=== PATIENT | male | born 1930 | race Caucasian/White ===

== ENCOUNTER 2017-09-04 04:23 | Emergency (ER) | payer MEDICARE, OTHER ==
[2017-09-04 04:54] LABS: Bilirubin Negative (Negative); Blood, Urine Small (Negative); Clarity Clear (Clear); Glucose, Urine (Dipstick) Negative (Negative); Leukocyte Negative (Negative); Nitrite Negative (Negative); Protein, Urine (Dipstick) Negative (Neg-Trace); Specific Gravity, Urine 1.015 (1.005-1.030); Urobilinogen 0.2 mg/dL (0.2-1.0); pH, Urine 6.5 (5.0-9.0)
[2017-09-04 04:59] LABS: Bacteria/HPF None Seen HPF (None Seen); Hyaline Casts/LPF 0-3 HYALINE CAST LPF (0-3 Hyaline); RBC/HPF 0-3 HPF (0-3); Squamous Epithelial 0-3 HPF (0-3); WBC/HPF 0-3 HPF (0-3)
[2017-09-04 05:18] LABS: #Basophils 0.1 thou/uL (0.0-0.2); #Lymphocytes 1.1 thou/uL (1.20-3.40); #Monocytes 1.1 thou/uL (0.11-0.59); #Neutrophils 5.4 thou/uL (1.40-6.50); %Basophils 0.8 % (0.0-1.0); %Eosinophils 0.6 % (0.0-10.0); %Neutrophils 70.6 % (42.0-75.0); Hemoglobin 11.6 g/dL (14.0-18.0); Mean Corpuscular HGB CONC 33.7 g/dL (32.0-36.0); Mean Corpuscular Volume 89.2 fl (80.0-94.0); Mean Platelet Volume 7.2 fL (7.4-10.4); Platelet Count 263 thou/uL (130-400); RBC Distribution Width 13.5 % (11.5-14.5); Red Blood Cell (RBC) Count 3.86 mill/uL (4.70-6.10); White Blood Cell (WBC) Count 7.7 thou/uL (4.8-10.8)
[2017-09-04 05:32] LABS: ALT (SGPT) 10 U/L (8-55); AST (SGOT) 14 U/L (5-34); Albumin 3.3 g/dL (3.4-4.8); Alkaline Phosphatase 66 U/L (40-150); Anion Gap 15 mmol/L (10-20); BUN (Urea Nitrogen) 19 mg/dL (8.4-25.7); Bilirubin, Total 0.3 mg/dL (0.2-1.2); Calc. Creatinine Clearance 0 mL/min (70-130); Calcium 9.1 mg/dL (7.8-10.44); Carbon Dioxide 22 mmol/L (23-31); Chloride 105 mmol/L (98-107); Estimated GFR-MDRD 66; Globulin 4.7 g/dL (2.4-3.5); Glucose 104 mg/dL (83-110); Potassium 4.2 mmol/L (3.5-5.1); Sodium 138 mmol/L (136-145)
--- NOTE | 2017-09-04 09:36 | RAD ---
CHEST 2 VIEWS: Date: 09/04/17 HISTORY: Left chest wall pain. Cough. COMPARISON: None. FINDINGS: Atherosclerosis of aorta. Normal cardiac silhouette. Pulmonary vessels and hilum are normal. Costophr enic angles are clear. No significant evidence of consolidation. There appears to be a mass in the le ft upper lobe measuring at least 4.2 cm. No pneumothorax or osseous abnormalities. IMPRESSION: 1. Left upper lobe mass. 2. Atherosclerosis. CODE LN. CODE T. POS: [facility]
--- NOTE | 2017-09-04 09:38 | RAD ---
LEFT RIB SERIES 2 VIEWS: Date: 09/04/17 PROVIDED CLINICAL HISTORY: Left chest wall pain. FINDINGS: There is no evidence for a displaced left-sided rib fracture, pleural fluid, or pneumothorax. No defi nite evidence for osteolytic or osteoblastic rib lesion. Left-sided upper lobe pulmonary nodule is no kevin. IMPRESSION: 1. No definite acute osseous abnormality. 2. Left apical pulmonary nodule, suspicious for neoplasm. Correlation with chest CT is recommended. CODE T. POS: [facility]
--- NOTE | 2017-09-18 01:26 | EKG ---
Test Reason : Blood Pressure : / mmHG Vent. Rate : 066 BPM Atrial Rate : 066 BPM P-R Int : 164 ms QRS Dur : 092 ms QT Int : 426 ms P-R-T Axes : 109 -25 050 degrees QTc Int : 446 ms Sinus rhythm with occasional Premature ventricular complexes and Possible Premature atrial complexes with Abberant conduction Otherwise normal ECG Confirmed by ALDAIR RAGSDALE, JAKOB ([id number]), telegraph editor CLARY YUSUF ([id number]) on 09/18/2017 1:25:50 AM Referred By: ALDAIR Confirmed By:JAKOB QUINTEROS MD
== END 2017-09-04 06:05 | disposition home or self-care (01) ==
LOC: SCSER 04:23
DX: M48.54XA Collapsed vertebra, not elsewhere classified, thoracic region, initial encounter for fracture (principal); M54.14 Radiculopathy, thoracic region
CPT/HCPCS: 71046; 80053; 81003; 81015; 85025; 85652; 86140; 93005

== ENCOUNTER 2017-09-14 08:18 | Outpatient (CLI) | payer MEDICARE, OTHER ==
[2017-09-14] MEDS ORDERED: Iopamidol 370 76% 100 ML VIAL ONE (09:00)
--- NOTE | 2017-09-14 11:43 | CT ---
CT CHEST WITH CONTRAST: INDICATIONS: Followup pulmonary mass noted in the left chest on recent rib and chest x-ray, performed 09/04/2017. TECHNIQUE: Multiple axial tomograms obtained through the chest with IV enhancement. FINDINGS: CT does confirm a mass in the left upper lobe, peripherally, which measures approximately 3 x 2 cm on lung windows in the axial plane. There is a second nodule seen inferior, in the left upper lobe, possibly representing a satellite les ion, measuring approximately 1.2 cm. There is another satellite lesion in the left upper lobe, media l to the larger lesion, measuring 1.2 cm. There are nonspecific nodular densities in the left apical region, which have the appearance of parenchymal scarring. There is a tiny, 4 mm nodule within the fissure in the left mid lung. Review of the right lung shows a 5 mm nodule in the posterior right lung base. Focal eventration in the posterior right hemidiaphragm is noted. There is prominent left hilar adenopathy. There are several enlarged left hilar lymph nodes, measuri ng up to 2.5 cm. There is mediastinal lymphadenopathy also noted, with a paratracheal lymph node on the left measuring 2.3 cm. Images through the upper abdomen are unremarkable. There is a cyst in the superior left kidney, soraida uring approximately 1.6 cm. Review of the osseous structures reveals a large, lytic process involving the T6 vertebra, concerning for a metastatic lesion. There is also a lytic process involving the posterior left 6th rib, at the costovertebral junction. IMPRESSION: 1. A 2 x 3 cm mass in the left upper lobe, peripherally, concerning for neoplasm. There are two sat ellite masses in the left upper lobe, one measuring 1.2 cm, medial to the larger mass, and another me asuring 1.2 cm, slightly inferior to the larger mass. 2. There is prominent left hilar and mediastinal adenopathy. 3. There are other scattered pulmonary nodules bilaterally, as described. 4. There is evidence of osseous involvement with a large lytic lesion involving the T6 vertebra and a lytic process involving the posterior left 6th rib, at the costovertebral junction. POS: [facility]
== END 2017-09-14 08:19 | disposition home or self-care (01) ==
LOC: SCSCT 08:18
PROVIDERS: ATTEND Family Medicine
DX: R91.1 Solitary pulmonary nodule (principal); R91.8 Other nonspecific abnormal finding of lung field; R59.0 Localized enlarged lymph nodes; M89.9 Disorder of bone, unspecified
CPT/HCPCS: 71260

== ENCOUNTER 2017-09-23 11:11 | Outpatient (CLI) | payer MEDICARE, OTHER ==
--- NOTE | 2017-09-23 11:55 | RAD ---
TWO VIEWS RIGHT HIP: History: Patient with lung cancer. History of right hip and right leg pain. FINDINGS/IMPRESSION: AP and frogleg views of the right hip obtained. There is no evidence of right hip fractures, subluxations, or bony lesions. Please see accompanying r ight femoral report. POS: [facility]
--- NOTE | 2017-09-23 12:02 | RAD ---
TWO VIEWS RIGHT FEMUR: FINDINGS: AP and lateral views of the right femur are obtained. There is an ill-defined mass in the lateral distal aspect of the right femur, diameter measuring up t o approximately 2.5 cm. This lesion appears to have eroded and extended into the lateral cortex of t he distal aspect right femoral diaphyseal region. There are some periosteal changes. Findings dona rning for osseous metastatic lesion. Findings called to Dr. Pranay David at 11:39 a.m. on 09/23/17. CODE CR POS: [facility]
== END 2017-09-23 11:12 | disposition home or self-care (01) ==
LOC: SCSRAD 11:11
PROVIDERS: ATTEND Radiology Radiation Oncology
DX: M25.551 Pain in right hip (principal); M79.604 Pain in right leg

== ENCOUNTER 2017-09-27 13:07 | Outpatient (CLI) | payer MEDICARE, OTHER ==
--- NOTE | 2017-09-28 09:19 | PET ---
NUCLEAR MEDICINE FDG PET CT: (Positron Emission Tomography) DATE: 09/27/17. HISTORY: An 86-year-old male with left upper lobe lung cancer. COMPARISON: None. TECHNIQUE: IV injection F-18 Fluorodeoxyglucose (FDG) dose: 10.3 mCi. PET and attenuation-correction CT performed from skull base to proximal thighs. FINDINGS: SUV (standard uptake value) numbers given are maximum SUV's: The 3 x 3 x 2 cm main left upper lobe pulmonary mass has SUV of 14. One of the 2 smaller nodules, located medially and slightly inferiorly, has SUV of 9.4. The second satellite nodule located directly inferior to the larger left upper lobe mass has SUV of 5 .3. Multiple contiguous left mediastinal and left hilar malignant lymph nodes. Aortopulmonic window lymp h nodes SUV 10.5, left hilar lymph node SUV 10.0. Osteolytic mass destroying head of left 6th rib: SUV 16.7. Osteolytic lesion occupying the majority of the volume of the T7 vertebral body: SUV 15.3. 2 x 1.5 cm osteolytic lesion at left iliac wing: SUV 2.7. Osteolytic lesion at the left scapula, located at the junction between the base of the acromion, base of glenoid, and base of scapular spine with SUV 14.0. No evidence of metastatic disease within the abdominal cavity or pelvic cavity, or in the neck. IMPRESSION: 1. A 3 cm left upper lobe lung cancer with 2 adjacent satellite left upper lobe pulmonary metastatic lesions. 2. Ipsilateral malignant left mediastinal and left hilar lymphadenopathy (does not cross midline). 3. At least 4 osseous metastases. 4. Stage T2a N2 M1b (bone) = IV-M1b (bone). CELSO Camacho POS: [facility]
== END 2017-09-27 13:08 | disposition home or self-care (01) ==
LOC: PET 13:07
PROVIDERS: ATTEND Internal Medicine Medical Oncology
DX: C34.12 Malignant neoplasm of upper lobe, left bronchus or lung (principal); R59.0 Localized enlarged lymph nodes; C79.51 Secondary malignant neoplasm of bone
CPT/HCPCS: 78815; A9552

== ENCOUNTER → 2017-09-29 | Day surgery (SDC) | payer MEDICARE, OTHER ==
[2017-09-28 12:54] VITALS: BMI 28.1
[~2017-09-29] MED LIST: Fentanyl 100 MCG/2 ML VIAL ONE; Midazolam HCl 2 mg/2 ml Vial ONE; Sodium Bicarbonate 2.5 MEQ/5 ML VIAL ONE
[2017-09-29 08:49] LABS: #Lymphocytes 1.3 thou/uL (1.20-3.40); #Neutrophils 5.7 thou/uL (1.40-6.50); %Eosinophils 0.4 % (0.0-10.0); %Lymphocytes 16.4 % (21.0-51.0); %Monocytes 12.6 % (0.0-10.0); %Neutrophils 70.6 % (42.0-75.0); Hemoglobin 11.3 g/dL (14.0-18.0); Mean Corpuscular HGB CONC 31.6 g/dL (32.0-36.0); Mean Corpuscular Hemoglobin 29.2 pg (27.0-31.0); Mean Corpuscular Volume 92.4 fl (80.0-94.0); Mean Platelet Volume 7.2 fL (7.4-10.4); Platelet Count 281 thou/uL (130-400); Red Blood Cell (RBC) Count 3.86 mill/uL (4.70-6.10); White Blood Cell (WBC) Count 8.1 thou/uL (4.8-10.8)
[2017-09-29 08:52] LABS: INR-International Normal Ratio 1.1; PTT 34.9 SEC (22.9-36.1); Prothrombin Time 14.3 SEC (12.0-14.7)
[2017-09-29 10:01] VITALS: BP 132/72; TEMP 97.6
--- NOTE | 2017-09-29 18:33 | CT ---
CT GUIDED BIOPSY OF LEFT SCAPULAR LESION: 09/29/17 HISTORY: 86-year-old male with stage IV left upper lobe lung cancer. Of the at least four metastatic osseous l esions, the one in the left scapula is targeted for biopsy. TECHNIQUE: Signed informed consent obtained. The entire procedure was performed under step CT guidance. [employer] bone biopsy kit was used. Patient placed prone on CT table. Skin posterior to left scapula prepared and draped in the usual alvarado rile fashion. 25 gauge needle used to apply buffered lidocaine superficially and deeply into the musc les posterior to the scapula. The 25 gauge needle did not reach the target, and therefore a 25 gauge spinal needle was used to apply the buffered lidocaine on the posterior cortical bony surface of the scapula. The 10 gauge introducer needle with trocar was advanced to the posterior cortical surface of the scap sriram where the osteolytic lesion was located, at the junction between the glenoid, body, and spine of the scapula. The posterior cortical surface was pierced using the power drill. Next, the trocar was r emoved from the hollow introducer 10 gauge needle. A 12 gauge hollow biopsy needle was mounted on the power drill, placed in coaxial fashion through the hollow introducer needle, and power advanced into the osteolytic lesion a distance of slightly less than 2 cm, yielding a core tissue sample which was given to Dr. Madhav Donahue of Pathology, who declared that the specimen was adequate, upon preliminar y touch preparation microscopy. The introducer needle was removed, and compression was applied. The p atient tolerated the procedure well. There was no complication. IMPRESSION: 1. Technically successful 12 gauge core biopsy x 1 of the osteolytic left scapular metastatic le ashwin. 2. Preliminary result is positive for malignancy. POS: [facility]
== END ==
LOC: RAD 08:28
PROVIDERS: ATTEND Internal Medicine Medical Oncology
PROC: 0PB63ZX Excision of Left Scapula, Percutaneous Approach, Diagnostic (ICD-10-PCS; principal; 2017-09-29)
DX: C79.51 Secondary malignant neoplasm of bone (principal); C34.12 Malignant neoplasm of upper lobe, left bronchus or lung; Z79.899 Other long term (current) drug therapy; Z87.891 Personal history of nicotine dependence
CPT/HCPCS: 20220; 36415; 71250; 77002; 81235; 85025; 85610; 85730; 88307; 88333; 88341; 88342; 88360; 88377; 88381; 99152; 99153; J2250; J3010